=== PATIENT | male | born 1985 | race African-American/Black ===

== ENCOUNTER 2022-04-11 18:01 | Emergency (ER) | payer MEDICAID, OTHER ==
[~2022-04-11] VITALS: Ht 172.7 cm; Wt 77.0 kg
[2022-04-11 18:02] VITALS: BP 117/72
[2022-04-11] MEDS ORDERED: NITROGLYCERIN 0.4MG TABLET SL SL PRN (18:30)
[2022-04-11] MEDS ORDERED: ASPIRIN 81MG TABLET PO ONE (18:30)
[2022-04-11] MEDS ORDERED: KETOROLAC 15MG/ML VIAL IV ONE (18:30)
== END 2022-04-11 19:09 | disposition left against medical advice (07) ==
LOC: ER 18:01
DX: R07.89 Other chest pain (principal); R94.31 Abnormal electrocardiogram [ECG] [EKG]; Z87.828 Personal history of other (healed) physical injury and trauma
CPT/HCPCS: 71045; 93005; 99283; J1885; Z7610